=== PATIENT | female | born 1995 | race African-American/Black ===

== ENCOUNTER 2016-09-16 16:33 | Emergency (ER) | payer OTHER ==
[~2016-09-16] VITALS: Ht 160 cm; Wt 45.5 kg
[2016-09-16 16:42] VITALS: BP 125/77; PULSE 100; RESP 16; O2SAT 100
[2016-09-16 17:47] VITALS: BP 120/77; PULSE 87; RESP 20; O2SAT 100
[2016-09-16 18:00] LABS: BASOPHILS % (AUTO) 0.4 % (0-3); MONOCYTES % (AUTO) 7.5 % (4-12); Mean Corpuscular Hemoglobin 30.6 pg (27.0-35.0); Platelet Count 216 bil/L (150-400)
--- NOTE | 2016-09-16 18:08 | ED.REPORT ---
HPI-Syncope Date of Service Sep 16, 2016 ED Provider: Manpreet Naranjo MD A 21 year old female with no pertinent medical history is brought to the ED via EMS due to possible syncope. The pt has experienced three episodes of similar symptoms in the last month, though she has been experiencing mild symptoms between episodes. These episodes consist of sudden onset dizziness, chest pain, palpitations, shortness of breath, lightheadedness, leg numbness, weakness and shaking. During the first episode, these symptoms began after the pt had a cup of coffee and stood up. She lost consciousness and fell to the ground, but denies trauma. She does not remember anything after she lost consciousness, but states that her symptoms lasted five minutes before she fell and it took twenty to thirty minutes to recover. The pt was seen at [place] following this episode and was diagnosed with fatigue. She experienced another episode last week after drinking coffee and sitting down. The episode today did not occur after she drank coffee and was witnessed by her mother. The pt's mother reports that the pt fell and hit her head then began shaking and convulsing while holding her chest and breathing rapidly. She appeared to be short of breath and was not responsive for thirty minutes. The pt recovered slowly after that point. In the ED, the pt is complaining of fatigue, body aches, lightheadedness, blurred vision and "head pressure," which she states has been baseline recently. She denies diaphoresis, nausea, fever, chills, cough, bowel or bladder incontinence , or radiation of her pain. She did not bite her tongue. The pt also denies family history of cardiac disease, seizures or blood clots. Nursing Notes Stated Complaint: SYNCOPE Chief Complaint: General Complaint Nursing Notes Reviewed: Yes (Innover[place] not reconciled) Allergies: Coded Allergies: No Known Allergies (Unverified , 09/16/16) Scheduled Levetiracetam (Keppra) 500 Mg Tablet 500 MG PO BID Scheduled PRN Lorazepam (Lorazepam) 0.5 Mg Tablet 0.5 MG PO BID PRN PRN For Anxiety General Time Seen by Provider: 17:34 Chief Complaint Other (Possible syncope) Hx Obtained From: Patient, Other family... (Mother), EMS Arrived By: Ambulance Onset Occurred: 1 - 4 hours ago Recent Healthcare: No recent hospitalization, Recent doctor visit Similar Sx Previous: Yes Past Medical History Past Medical History none reported Past Surgical History none reported Family History denies family history of cardiac disease, seizures or blood clots Smoking History Never Smoker Social History Alcohol Use: Denies alcohol use Drug Use: Denies drug use Other Social History: Good social support Occupation lives by self Ambulatory Status Independent Review of Systems Review of Systems Note: rapid breathing body aches denies bowel or bladder incontinence Constitutional: Reports: Fatigue, Denies: Chills, Fever Eyes: Reports: Blurred bilateral Respiratory: Reports: Shortness of breath, Denies: Non-productive cough Cardiovascular: Reports: Chest pain, Palpitations GI: Reports: Nausea, Denies: Abdominal pain, Vomiting Musculoskeletal: Denies: Back pain, Neck pain Skin: Denies Diaphoresis Neurologic: Reports: Change LOC, Dizziness, Headache ("head pressure"), Lightheaded, Numbness, Shaking, Weakness Complete sys rev & neg: except as marked. Physical Exam Initial Vital Signs Vital Signs (First) Date Time Temp Pulse Resp B/P Pulse Ox O2 Delivery O2 Flow Rate FiO2 09/16/16 16:42 36.1 100 16 125/77 100 Room Air Initial VS: Reviewed, Vital signs normal General/Constitutional: Awake, Alert Respiratory / Chest: Atraumatic, Breath sounds NL, Breath sounds = bilat, No respiratory distress Cardiovascular: Heart rate NL, Regular rhythm, Heart sounds NL Lower Extremity / Pelvis / MS: Atraumatic, Full range of motion Neurologic: Oriented X3, Speech NL, No motor deficits, No sensory deficits Head / Eyes: Atraumatic, Normocephalic, PERRL, EOMI ENT: Atraumatic, Airway patent, Mucous membranes moist Neck: Atraumatic, Supple, Full range of motion Abdomen: Atraumatic, Soft, Non-tender Back: Atraumatic, Full range of motion Skin: Atraumatic, Color NL, No rash, Warm, Dry Psychiatric: Affect NL, Mood NL Upper Extremity / MS: Atraumatic, Full range of motion Interpretation & Diagnostics Lab Results Interpretation Result Diagram: 09/16/16 1750 09/16/16 1750 Test 09/16/16 17:50 09/16/16 18:53 White Blood Count 5.5th/mm3 (3.8-10.1) Red Blood Count 4.35mil/mm3 (3.90-5.20) Hemoglobin 13.3g/dL (12.0-15.6) Hematocrit 39.6% (35.0-46.0) Mean Corpuscular Volume 91.0fL (81-100) Mean Corpuscular Hemoglobin 30.6pg (27.0-35.0) Mean Corpuscular Hemoglobin Concent 33.6% (32.0-37.0) Red Cell Distribution Width 12.0% (12.3-15.4) Platelet Count 216bil/L (150-400) Neutrophils (%) (Auto) 60.0% (40-74) Lymphocytes (%) (Auto) 27.9% (14-46) Monocytes (%) (Auto) 7.5% (4-12) Eosinophils (%) (Auto) 4.0% (0-5) Basophils (%) (Auto) 0.4% (0-3) D-Dimer < 0.50mg/L FEU (<0.50) Sodium Level 140mEq/L (134-144) Potassium Level 3.7mEq/L (3.5-5.2) Chloride Level 106mEq/L (97-108) Carbon Dioxide Level 24mmol/L (18-29) Blood Urea Nitrogen 10mg/dL (6-20) Creatinine 0.47mg/dL (0.57-1.00) Estimat Glomerular Filtration Rate 211mL/min (>59) Glucose Level 109mg/dL (60-99) Calcium Level 9.3mg/dL (8.5-10.1) Magnesium Level 1.9mg/dL (1.6-2.6) Total Bilirubin 0.2mg/dL (0.0-1.2) Aspartate Amino Transf (AST/SGOT) 14U/L (0-50) Alanine Aminotransferase (ALT/SGPT) 9U/L (0-32) Alkaline Phosphatase 33U/L (25-150) Total Protein 6.5g/dL (6.4-8.4) Albumin 3.9g/dL (3.4-5.0) Thyroid Stimulating Hormone (TSH) 1.720uIU/mL (0.450-4.500) Hold Beverly Top Tube Received (Received) Hold Urine Received (Received) Lab Results Interpretation: CBC normal CMP normal negative TSH normal D-dimer negative ECG Interpretation ECG Interpretation: normal sinus rhythm with a rate of 89 Time: 18:07 Interpreted by: ED physician CT Head Interpretation IMPRESSION: No acute intracranial disease process. Dictated by: Carolyn Sanchez MD, PhD on 09/16/2016 at 19:25 Approved by: Carolyn Sanchez MD, PhD on 09/16/2016 at 19:27 Interpretation / Wet Read by: Interpret - Radiologist Re-Eval/Medical Decision Med Decision/Clinical Course This is a 21-year-old female presents with 3 episodes of unresponsiveness that of recurrent over the past 4-5 weeks. Sleep illness syncope, the company family members who say that he witnessed it described. Of unresponsiveness that is starts with shaking and convulsions, and that it takes 25-30 minutes for the patient recovered back to baseline. This is more concerning for seizure. Patient does have some atypical symptoms of dizziness, and maybe palpitations that preceded the event-and today was most severe event. She has been seen once at [facility] ED following a previous event, but family states this was the most severe. The patient's awake, alert and appropriate with normal vital signs here. She is a normal physical exam with no focal deficits. She is not tachycardic or tachypneic or hypoxic or hypotensive. She is not orthostatic. No dysrhythmic events identified, her EKG is normal. Lab work is normal including d-dimer. Lites are normal. She had no hard findings of having bitten her tongue. CT brain was negative. However overall with a prolonged 25-30 minute recovery following convulsions, this is concerning for an development of a seizure disorder. I have offered the patient to start on Keppra, the patient wants to consider this but is accepted the prescription without agreeing to an x-ray taken at this time. He needs follow-up with her PCP to pursue EEG and neurology consultations were's reviewed. Patient is discharged asymptomatic in good condition. Source of Hx: Old records Re-Evaluation/Progress : Time of Eval: 20:17 Patient Status: Condition improved Re-Evaluation/Progress Note: Pt rechecked, who is comfortable. The diagnosis and plan for discharge are discussed. The pt understands and agrees with the plan. All questions are addressed at this time. Differential Diagnosis: Positive: Head trauma, Negative: Abdominal aortic aneurysm, Acute coronary syndrome, Alcohol abuse, Anemia, Arrhythmia, Cerebrovascular accident, Dysrhythmia, Electrolyte disorder , Intracranial bleed, Malingering, Medication-induced, Meningitis, Pericarditis , Pneumothorax, Prolonged QT syndrome, Subarachnoid hemorrhage, Thoracic aortic dissect, [employer] shunt malfunction Counseled Regarding: Diagnosis, Lab results, Need for follow-up, When/why to return to ED Discharge & Departure Impression: Primary Impression: Seizure Disposition: Home Discharge Condition All VS Reviewed: Yes Condition: Stable Additional Instructions: 1. Your symptoms and presentation are concerning for a possible seizure disorder. 2. Your initial tests in the emergency department were normal - your EKG, blood , tests, urine tests, and CT Brain scan were normal and did not reveal a dangerous cause of seizure or a dangerous cardio-pulmonary condition. 3. The next step is outpatient follow up for a test called an "EEG" which would be set up by your primary care doctor and likely done in a number of weeks. Call Monday for an appointment with your primary care provider who will place the referral for the EEG and neurology. 4. Given you have had multiple episodes in recent weeks, I recommend going ahead and starting you on seizure medications. 5. Start the seizure medication levitiracetam (Keppra) 500mg twice a day in the interim. This medication can cause some mild drowsiness. 6. The [facility] does not want people with possible seizures driving until cleared by neurology (which can take several months). 7. Return if new or worsening symptoms. Referrals: Andres Tovar DO (PCP) Scribe Attestation Portions of this note were transcribed by Mili Paula. I, Dr. Naranjo personally performed the history, physical exam and medical decision-making; I reviewed and confirmed the accuracy of the information in the transcribed note. Signed by: Tee Lopez, 09/16/2016 and 2027. copies to: Andres Tovar Matthew F MD Sep 16, 2016 18:08 MILI PAULA Sep 16, 2016 18:39
[2016-09-16 18:20] LABS: Magnesium 1.9 mg/dL (1.6-2.6)
--- NOTE | 2016-09-16 19:28 | DRSVH ---
PROCEDURE: CT BRAIN WITHOUT CONTRAST ([id number]) INDICATIONS: New onset seizure. TECHNIQUE: Noncontrast 4.5 mm thick angled axial sections acquired from the foramen magnum to the vertex, with c oronal reformats. COMPARISON: None. FINDINGS: Image quality: Excellent. CSF spaces: Basal cisterns are patent. No extra-axial fluid collections. Ventricles are normal in size and shape. Brain: No midline shift. No intracranial masses or hemorrhage. Martinez-white matter interface is norm al. Skull and face: Calvarium and visualized facial bones are intact, without suspicious lesions. Sinuses: Visualized sinuses and mastoids are clear. IMPRESSION: No acute intracranial disease process. Dictated by: Carolyn Sanchez MD, PhD on 09/16/2016 at 19:25 Approved by: Carolyn Sanchez MD, PhD on 09/16/2016 at 19:27
[2016-09-16] MEDS ORDERED: KEP500TA PO (19:53)
[2016-09-16] MEDS ORDERED: LORA0.5T PO (20:24)
[2016-09-16 21:37] VITALS: BP 115/75; PULSE 93; RESP 14; O2SAT 100
== END 2016-09-16 20:50 | disposition home or self-care (01) ==
LOC: EDBD 16:33 → SED 16:33
DX: R42 Dizziness and giddiness (principal); R56.9 Unspecified convulsions